=== PATIENT | female | born 1965 | race Caucasian/White ===

== ENCOUNTER → 2016-07-13 | Outpatient (CLI) | payer BC | END | disposition home or self-care (01) | LOC: RAD.S 13:00 | DX: Z12.31 Encounter for screening mammogram for malignant neoplasm of breast (principal) ==

== ENCOUNTER 2016-07-24 18:35 | Emergency (ER) | payer BC ==
--- NOTE | 2016-07-28 13:14 | ER ---
ADMIT: 07/24/2016 RM/LOC: ER [facility] MR#: [id number] [place], [place] [id number] EUGENIA OROZCO [address] [facility] [address] [place] [address] Emergency Room Report SEX: F AGE: 51 : 1965 DATE: 07/24/2016 CHIEF COMPLAINT: Pain all over. HISTORY OF PRESENT ILLNESS: A 51-year-old female, who presents with 7 days' duration of epigastric pain. States this pain starts epigastrically, kind of radiates to the back and to both shoulders. States this is associated with some shortness of breath and describes it as sharp and stabbing. She admits to chest pain, shortness of breath, cough, abdominal pain, nausea, diarrhea, urinary frequency, headache, and weakness. PAST MEDICAL HISTORY: Fibromyalgia. ALLERGIES: TO PERCOCET, PENICILLIN. COURSE IN THE EMERGENCY ROOM: GENERAL: The patient was seen and examined. She is afebrile and nontoxic. She is in mild amount of distress. She is anxious. NECK: Soft and supple. No lymphadenopathy. CHEST: Nontender. No wheezes, rhonchi, or rales. HEART: Regular rate and rhythm. No murmurs, gallops, rubs. ABDOMEN: She does have some epigastric tenderness and guarding. BACK: Normal inspection. SKIN: Warm and dry. EXTREMITIES: Nontender. No pedal edema. Laboratory studies show white count 13.9, hemoglobin 13.7, hematocrit 41.4, platelets 238. Sodium 141, potassium 4.1, glucose 120, creatinine 0.9, bilirubin 0.4, AST 22, ALT 32. Urine shows 1+ leukocytes esterase with 7 wbc's per high-power field. CT abdomen and pelvis reveals fatty infiltration of liver, constipation, as well as a small exophytic structure arising from the medial cortex of the right kidney. Recommended followup MRI as an outpatient. Question possible left lower pneumonia. The patient denies any cough or fever. I did give her Bactrim DS 1 tab p.o. prior to discharge treating for urinary tract infection. She was also given a liter bolus of normal saline as well as Zofran 4 mg IV and Toradol 15 mg IV. States her pain is improved. ADMIT: 07/24/2016 RM/LOC: ER [facility] MR#: [id number] [id number] NORRISJULISA COLINCARMENEUGENIA BLUM [address] [facility] [address] [place] [address] Emergency Room Report SEX: F AGE: 51 : 1965 IMPRESSION: 1. Abdominal pain, epigastric. 2. Urinary tract infection. DISPOSITION: The patient will be started on Bactrim DS 1 tab p.o. b.i.d. for 5 days. She is to continue fluids as tolerated. Watch her diet. Start clears and advance as tolerated. Continue home medications. Return with worsening signs or symptoms. Follow up PCP if she is not improving. I did review the CT findings with her, recommended followup PCP to schedule outpatient MRI in regard to the kidney irregularity found on CT. Questions sought and answered to the best of my ability and to the patient's satisfaction. Discharged in stable condition. GERARD Davis / Etienne Aldrich MD / eris JOB #: [id number] CC: Darin Betancourt MD, Attending Physician Terry Layton MD, Family Physician
== END 2016-07-24 22:25 | disposition home or self-care (01) ==
LOC: ER 18:35
DX: N39.0 Urinary tract infection, site not specified (principal); R10.13 Epigastric pain; Z88.0 Allergy status to penicillin; Z88.6 Allergy status to analgesic agent; Z90.49 Acquired absence of other specified parts of digestive tract; Z90.710 Acquired absence of both cervix and uterus